=== PATIENT | male | born 1955 | race Caucasian/White ===

== ENCOUNTER 2016-11-22 19:35 | Inpatient (IN) | payer OTHER ==
[~2016-11-22] VITALS: Ht 182.9 cm; Wt 100.7 kg
--- NOTE | ~2016-11-22 | HC ---
[facility] [place] [address] CONSULTATION Name: RAHEL CAMPA Room #: 419-P [facility] IN M.R.#: [id number] Admission: 11/22/16 Attend Phys: Melany Palencia Discharge: 11/25/16 Date of : 57 Report #: [id number] THIS REPORT FOR: //name// CC: Jono Palencia DATE OF SERVICE: 11/24/2016 CHIEF COMPLAINT: Lower abdominal pain. HISTORY OF PRESENT ILLNESS: The patient is a 61-year-old male patient with history of rectal cancer and previous DVT. He had previously undergone treatment for stage III T3N1 rectal cancer, who had previously undergone laparoscopic assisted Splenic flexure mobilization with proctectomy and stapled coloanal anastomosis and diverting loop ileostomy in December 2007. He subsequently underwent loop ileostomy reversal with incisional hernia repair by Dr. Kern as well in 07/2008. More recently, he was admitted from [facility] with complaints of right flank pain radiating into the right groin. CT scan at the outside facility had shown right hydronephrosis and possible distal ureteral stricture. There was also a small calcification near the transition point. The patient was evaluated by urology service with Dr. Morales and the patient underwent a CT scan with urogram. This demonstrated that the hydronephrosis appeared chronic compared to CT scan from 2013, hydroureter was noted 5 cm proximal to the bladder, which also appeared chronic, no calculi were noted. No acute intervention was warranted by Urology at this time. The patient was also noted to have a chronic incarcerated ventral incisional hernia in the right lower abdominal wall from the prior ileostomy site. There were no loops of bowel contained within the hernia, no bowel obstruction. The patient has been on Plavix for previous CVA and that had been held for 3 days prior to this visit. The patient complained of right flank pain radiating into the right scrotum. Ultrasound of the scrotum was also obtained, which was unremarkable. There was also some discomfort that he described at the site of his hernia, which was uncomfortable, but not exquisitely tender. He did wish for repair of this incisional hernia and the patient knew that this had been in place for quite some time. PAST MEDICAL HISTORY: Positive for rectal cancer status post resection and subsequent adjuvant therapy including radiation therapy. He followed with Dr. Wen with Oncology. Past medical history is also positive for hypertension, previous sinus surgery, anxiety, degenerative joint disease, depression, hyperlipidemia, chronic pain, gastroesophageal reflux disease, bilateral carpal tunnel. PAST SURGICAL HISTORY: As described above. Previous chemoradiation for rectal cancer with resection by Dr. Kern with coloanal anastomosis with loop ileostomy and subsequent reversal as well as incisional hernia repair at that ileostomy site, which is now recurrent. Also, positive for bilateral carpal [address] [address] CONSULTATION Name: RAHEL CAMPA Room #: 419-P [facility] IN M.R.#: [id number] Admission: 11/22/16 Attend Phys: Melany Palencia Discharge: 11/25/16 Date of : 57 Report #: [id number] tunnel release, multiple functional endoscopic sinus surgeries. ALLERGIES: CODEINE and MORPHINE. SOCIAL HISTORY: Negative for tobacco, ETOH or drug use. MEDICATIONS: Elavil, zolpidem, gabapentin, simvastatin, Celebrex, Plavix 75 mg daily, Cymbalta, Louin, Requip, Zanaflex, Benadryl, Tylenol, chlorpheniramine maleate, folate, ranitidine, amlodipine, Meloxicam, fenofibrate. REVIEW OF SYSTEMS: A 10-point review of systems negative except for that mentioned in the HPI. PHYSICAL EXAMINATION: GENERAL: The patient is awake, alert and oriented. He is in no acute distress, he is afebrile and normotensive. HEENT: Head is atraumatic and normocephalic. LUNGS: Clear to auscultation without respiratory distress. HEART: Regular, without murmur. ABDOMEN: Soft, nondistended. He is tender in a right mid abdomen to lower abdomen. There is a palpable hernia, unable to palpate the edges of the hernia defect, this is incarcerated, does not appear strangulated, no overlying skin changes, no rebound or guarding. Scrotal contents unremarkable on examination. No palpable inguinal hernia. NEUROLOGIC: Cranial nerves are intact and symmetric. SKIN: Clean, dry and intact without obvious lesions or breakdown. LABORATORY DATA: Reviewed. White count of 9.9, hemoglobin of 13.9, platelets of 260. Urinalysis showed 1+ protein, 1+ blood, 0-3 hyaline casts. IMPRESSION: A 61-year-old male patient with recurrent incarcerated ventral incisional hernia from prior ileostomy reversal site, previous history of rectal cancer status post resection with coloanal anastomosis as well as chemoradiation therapy. No sign of acute bowel obstruction or strangulated hernia, although this does appear incarcerated on CT and examination and is uncomfortable for the patient. No immediate surgical intervention is necessary. However, this certainly could be repaired on an outpatient basis. Detailed discussion of the risks and benefits of surgical intervention for repair of this hernia held with the patient and his at the bedside. Risks included bleeding, pain, infection, recurrence, damage to surrounding structures including bowel, colon, bladder, ureters, kidneys and other unforeseen circumstances were all discussed. It was discussed that should any of these unforeseen events occur this may require further treatment and further hospitalization and all questions were answered to their satisfaction. RECOMMENDATIONS: 1. The patient does wish to proceed with laparoscopic ventral incisional hernia repair in the near future. 2. We would resume patient's Plavix at this time and will coordinate with the patient as an outpatient to hold his Plavix 7 days preoperatively. 3. Consultation very [address] [address] CONSULTATION Name: RAHEL CAMPA Room #: 419-P [facility] IN M.R.#: [id number] Admission: 11/22/16 Attend Phys: Melany Palencia Discharge: 11/25/16 Date of : 57 Report #: [id number] much appreciated. We will continue to follow the patient while he is an inpatient and make further recommendations based upon clinical status, radiographic and laboratory findings. <ELECTRONICALLY SIGNED> By: Eliezer Johnson MD 11/27/16 0647 1400 0256 Eliezer Johnson MD /nt
[~2016-11-22 19:35] MED LIST: AMBIEN 5 MG TABL5 M1 PO; AMITRIPTYLINE H25 M2 PO; ASPIRIN325 PO; BUSPIRONE HCL10 MG PO; BUSPIRONE HCL15 MG PO; FISH OIL 1,001000 M2 PO; FLEXERIL PO; FLONASE 0.05%50 MCG NASAL; HYDROCODON-ACE1 EAC5; LORAZEPAM 1 MG T1 M1 PO; MILK OF MA2400 MG/10 PO; MIRALAX17 GM PO; MOBIC7.5 MG PO; NEURONTIN 300300 M1 PO; NORVASC 5 MG TAB5 MG PO; PERCOCET PO; RAPAFLO8 MG PO; SIMVASTATIN40 MG PO; TRICOR145 MG PO; VALIUM5 MG PO; VENLAFAXINE HC150 M1 PO; ZANTAC 150MG T150 MG PO
[2016-11-22 21:24] VITALS: BP 138/81
[2016-11-22 21:48] LABS: HEMOGLOBIN 13.9 gm/dL (14.0-18.0); MCH 31.7 pg (26.0-34.0); MCHC 34.7 g/dL (28.0-37.0); MCV 91.3 fL (80.0-100.0); RBC 4.38 mil/uL (4.50-6.00); RDW 12.6 % (10.5-14.5); WBC 9.9 thou/uL (4.0-11.0)
[2016-11-22 22:00] LABS: CALCIUM 8.4 mg/dL (8.5-10.1); CREATININE 1.3 mg/dL (0.7-1.3)
[2016-11-22 22:05] LABS: ALBUMIN 3.9 g/dL (3.4-5.0); TOTAL BILIRUBIN 0.5 mg/dL (<0.1-1.0); TOTAL PROTEIN 7.7 g/dL (6.4-8.2)
[2016-11-22] MEDS ORDERED: CELEBREX 200 M200 M1 PO (22:33)
[2016-11-22] MEDS ORDERED: CYMBALTA60 MG PO (22:33)
[2016-11-22] MEDS ORDERED: PLAVIX 75 MG TA75 M1 PO (22:33)
[2016-11-22] MEDS ORDERED: ZANAFLEX4 MG PO (22:34)
[2016-11-22] MEDS ORDERED: HYDROCODONE-APA1 TA1 PO (22:34)
[2016-11-22] MEDS ORDERED: REQUIP0.5 MG PO (22:34)
[2016-11-22] MEDS ORDERED: APAP500 PO (22:35)
[2016-11-22] MEDS ORDERED: BENADRYL25 MG PO (22:35)
[2016-11-22] MEDS ORDERED: FOLIC ACID 40400 MCG PO (22:36)
[2016-11-22] MEDS ORDERED: CHLORPHENIRAMINE4 M1 PO (22:36)
[2016-11-22 23:33] VITALS: BP 131/77
[2016-11-23 00:07] LABS: URINE BILIRUBIN NEGATIVE (Negative); URINE BLOOD 1+ (Negative); URINE COLOR YELLOW; URINE GLUCOSE-RANDOM* 1+ (Negative); URINE KETONES NEGATIVE (Negative); URINE LEUKOCYTES-REFLEX NEGATIVE (Negative); URINE PROTEIN (DIPSTICK) 1+ (Negative); URINE SPECIFIC GRAVITY 1.025 (1.003-1.035)
[2016-11-23 00:23] LABS: CASTS None Seen /LPF (None Seen); SQUAMOUS None Seen /LPF (0-3); URINE WBC-REFLEX None Seen /HPF (0-5)
[2016-11-23 00:24] LABS: CRYSTALS None Seen /LPF (None Seen); HYALINE CASTS 0-3 Few /LPF (None Seen); URINE RBC None Seen /HPF (0-2)
[2016-11-23 03:21] VITALS: BP 151/84
[2016-11-23 07:09] VITALS: BP 149/82
[2016-11-23 15:12] VITALS: BP 139/91
[2016-11-23 19:12] LABS: GLYCOHEMOGLOBIN (HGB A1C) 7.5 % (4.8-5.6)
[2016-11-23 20:00] VITALS: BP 142/88
[2016-11-24 05:30] VITALS: BP 121/77
[2016-11-24 07:56] VITALS: BP 145/82
[2016-11-24 11:30] LABS: HEMATOCRIT 36.5 % (42.0-52.0); HEMOGLOBIN 12.6 gm/dL (14.0-18.0); MCH 31.5 pg (26.0-34.0); MCHC 34.4 g/dL (28.0-37.0); MCV 91.5 fL (80.0-100.0); RBC 3.99 mil/uL (4.50-6.00); RDW 12.9 % (10.5-14.5); WBC 6.8 thou/uL (4.0-11.0)
[2016-11-24 11:38] LABS: POTASSIUM 4.3 mmol/L (3.5-5.1)
[2016-11-24 11:51] VITALS: BP 129/80
[2016-11-24] MEDS ORDERED: GLYBURIDE 5 MG T5 M1 PO (12:02)
[2016-11-24 15:14] VITALS: BP 123/58
[2016-11-24 20:00] VITALS: BP 149/73
[2016-11-25 04:09] VITALS: BP 128/63
[2016-11-25 07:08] VITALS: BP 119/69
[2016-11-25 10:30] VITALS: BP 119/69
[2016-12-01] MEDS ORDERED: NORVASC10 MG PO (16:07)
[2016-12-01] MEDS ORDERED: FENOFIBRATE160 MG PO (16:09)
== END 2016-11-25 11:33 | disposition home or self-care (01) | DRG 694 ==
LOC: 4E 19:35
PROVIDERS: Nurse Practitioner; Physician Assistant
PROC: BV44ZZZ Ultrasonography of Scrotum (ICD-10-PCS; principal; 2016-11-24)
DX: N13.30 Unspecified hydronephrosis (principal); K43.0 Incisional hernia with obstruction, without gangrene; N17.0 Acute kidney failure with tubular necrosis; I10 Essential (primary) hypertension; M19.90 Unspecified osteoarthritis, unspecified site; F32.9 Major depressive disorder, single episode, unspecified; E78.5 Hyperlipidemia, unspecified; K21.9 Gastro-esophageal reflux disease without esophagitis; M54.5 Low back pain; G89.4 Chronic pain syndrome; F41.1 Generalized anxiety disorder; E66.9 Obesity, unspecified; Z68.30 Body mass index [BMI] 30.0-30.9, adult; Z79.899 Other long term (current) drug therapy; Z79.82 Long term (current) use of aspirin; Z85.048 Personal history of other malignant neoplasm of rectum, rectosigmoid junction, and anus; Z86.718 Personal history of other venous thrombosis and embolism; Z93.2 Ileostomy status; Z88.6 Allergy status to analgesic agent; Z87.442 Personal history of urinary calculi; Z86.73 Personal history of transient ischemic attack (TIA), and cerebral infarction without residual deficits
CPT/HCPCS: 10183

== ENCOUNTER 2016-12-07 05:25 | Day surgery (SDC) | payer OTHER ==
[~2016-12-07] VITALS: Ht 182.9 cm; Wt 99.8 kg
--- NOTE | ~2016-12-07 | S ---
[facility] [place] [address] SURGICAL PATH RPT PROCEDURE Name: CHIDI CAMPA Room #: DEP [facility] M..#: [id number] Admission: 12/07/16 Date of : 57 Discharge: 12/07/16 Report #: [id number] Path Case #: [id number] PATHOLOGY REPORT COLLECTION DATE: 12/07/2016 RECEIVED DATE: 12/07/2016 SUBMITTING PHYS: Dr. Eliezer Johnson OTHER PHYS: Dr. Jono Reese SPECIMEN(S) RECEIVED: A.Recurrent incarcerated ventral hernia contents * * * * * * * * * * * * FINAL DIAGNOSIS: Recurrent incarcerated ventral hernia, repair: - Fibroadipose and fibrovascular connective tissue with reactive changes, compatible with hernia sac. (IUV:mgr; d/t: 12/09/16) PATHOLOGIST: La Nena Moon M.D. REPORT ELECTRONICALLY SIGNED BY: La Nena Moon M.D. DATE/TIME: 12/09/2016 16:39 * * * * * * * * * * * * GROSS PATHOLOGY: The specimen is received in formalin labeled "Chidi Campa, recurrent incarcerated ventral hernia contents". Received is a moderate amount of yellow-thompson omentum admixed with yellow white-thompson lobulated tissue measuring 8.3 x 6.2 x 1.9 cm in aggregate dimensions. The specimen is submitted representatively in cassette A1. (CAA; 12/08/2016) CLINICAL HISTORY: Recurrent incarcerated ventral incisional hernia, primary umbilical hernia INITIAL CPT CODE(S): A; 24085 Professional services performed by [facility] at [facility] [address], [place] [address] Technical services performed by [facility] at [address] [place] [id number]. [facility] [address] [place] [address] SURGICAL PATH RPT PROCEDURE Name: CHIDI CAMPA Room #: DEP [facility] Forest#: [id number] Admission: 12/07/16 Date of : 57 Discharge: 12/07/16 Report #: [id number] Path Case #: [id number] [facility] [address] [address] PHONE: [phone] DIRECTOR: Bear Rangel M.D. * * * END OF REPORT * * *
--- NOTE | ~2016-12-07 | O ---
[facility] [place] [address] OPERATIVE REPORT Name: RAHEL CAMPA Room #: [facility]..#: [id number] Admission: 12/07/16 Attend Phys: Eliezer Johnson MD Discharge: 12/07/16 Date of : 57 Report #: [id number] THIS REPORT FOR: //name// CC: Jono Johnson DATE OF SERVICE: 12/07/2016 PREOPERATIVE DIAGNOSES: 1. Incarcerated recurrent ventral incisional hernia at prior ileostomy site. 2. Primary umbilical hernia, symptomatic. POSTOPERATIVE DIAGNOSES: 1. Incarcerated recurrent ventral incisional hernia at prior ileostomy site. 2. Primary umbilical hernia, symptomatic. PROCEDURE: 1. Laparoscopic repair of recurrent incarcerated ventral incisional hernia with mesh. 2. Primary suture repair of umbilical hernia. SURGEON: Eliezer Johnson M.D. COMMERCIAL DRIVER: Sridhar Reese M.D. and Beulah Preston, Medical Student. ESTIMATED BLOOD LOSS: 15 mL. IV FLUIDS: See anesthesia record. FINDINGS: 11.[address] mesh with absorbable tacking system utilized for incarcerated right abdominal wall ventral incisional hernia repair. SPECIMENS TO PATHOLOGY: Incarcerated ventral incisional hernia contents consistent with incarcerated omentum and preperitoneal fat. INDICATION FOR PROCEDURE: The patient is a very pleasant 61-year-old male patient with history of rectal cancer treated approximately 9 years ago. This had involved resection with primary anastomosis and a diverting loop ileostomy. The ileostomy was subsequently taken down and the patient developed a hernia, which was repaired. The hernia recurred and has been quite symptomatic in the area of the right mid to lower abdomen. This has been imaged and contains incarcerated omentum. This was symptomatic to the patient. He also had umbilical small hernia which was symptomatic, which the patient desired to have repaired. Detailed discussion of the risks and benefits of surgical intervention was held with the patient and all questions were answered to his satisfaction. Risks including bleeding, pain, infection, recurrence, damage to surrounding structures such as bowel, bladder, kidneys, ureter, colon, subsequent infection or abscess formation were all discussed in detail. All questions were answered to the patient's satisfaction, written informed consent was obtained. [address] [address] OPERATIVE REPORT Name: RAHEL CAMPA [id number] Admission: 12/07/16 Attend Phys: Eliezer Johnson MD Discharge: 12/07/16 Date of : 57 Report #: [id number] DESCRIPTION OF PROCEDURE: The patient was brought to the operating room and placed in a supine position. Timeout was taken to verify the patient's identity and to plan the procedure. SCDs were in place on the lower extremities bilaterally. Preoperative antibiotics were administered. Anesthesia was induced. The patient was intubated. Abdomen was sterilely prepped and draped in standard fashion. Left upper quadrant 5-mm incision was made after local anesthetic had been infiltrated. A 5-mm 0-degree laparoscope was inserted with a 5-mm trocar using direct optical access technique. Pneumoperitoneum was created and inspection of the viscera showed that no injury had occurred upon entry. A 5-mm left lateral port and a 5 mm left lower quadrant port were placed under direct visualization. The left lateral port was then upsized to a 12-mm port. The anterior abdominal wall was visualized and omentum was noted to be incarcerated in a hernia in the right mid abdomen at the prior site of loop ileostomy. The omentum was reduced using blunt dissection and Sonicision energy device. A fair amount of the incarcerated fat was transected and removed as incarcerated ventral incisional hernia contents consistent with incarcerated omentum and preperitoneal fat. The omentum that had been reduced was examined and noted to be hemostatic. The peritoneum surrounding the hernia defect was scored and stripped away from the fascia. The site of the umbilical hernia was examined and this was noted to be a quite small 0.5 cm umbilical hernia defect. The peritoneum was stripped away from this site and this was palpated externally to allow visualization. This was closed using #1 PDS [id number]-ik-[id number] suture passed through the umbilicus using a suture passer under direct visualization. This was tied down and secured. Next, a Ventralight ST round 11.4 cm mesh was selected. This was rolled into a cylinder and passed through the 12 mm port site. This was unfurled and suspended up against the anterior abdominal wall to cover the defect. This was noted to cover the defect nicely with at least 4 cm overlap in all directions surrounding the hernia defect. This was then secured to the anterior abdominal wall using a SecureStrap absorbable tacking system. Prior to tacking this in place, the intra-abdominal pressure was decreased to a level of 10 cm of water. Also, a 5-mm right lateral port was placed under direct vision to aid with the geometry of tacking the 11.4 cm mesh circumferentially with good coverage. Intraoperative photographs were taken at various points during the operation including initially after visualization of the defect and reduction of the hernia contents as well as after placement of the hernia mesh. Echo positioning device was removed from the 12-mm port site, it was noted to be intact. Inspection of the viscera showed that no further active bleeding was noted. The 12-mm port was then removed and the fascia was closed at this level using [id number] 0 PDS suture under direct vision. Pneumoperitoneum was then carefully relieved and local anesthetic was further infiltrated into each of the 4 port sites as well as at the umbilicus. The skin was closed at each of the 4 port sites using 4-0 Monocryl subcuticular stitches. Dermabond was applied superficially to each of these 4 sites. Dermabond was also applied at the suture passer site at the umbilicus as well as the suture passer site that [address] [address] OPERATIVE REPORT Name: LOKESHRAHEL CARMEN Room #: [facility].#: [id number] Admission: 12/07/16 Attend Phys: Eliezer Johnson MD Discharge: 12/07/16 Date of : 57 Report #: [id number] had been used for the echo positioning system at the right mid abdomen hernia defect site. At this point, the case was ended, all instrumentation had been extracted and accounted for. All counts were correct per nursing report. External elastic binder was placed and the patient was extubated and taken to the postoperative care unit in stable condition. <ELECTRONICALLY SIGNED> By: Eliezer Johnson MD 12/08/16 1650 1508 1534 Eliezer Johnson MD /nt
--- NOTE | ~2016-12-07 | EKG ---
[address] [address] ELECTROCARDIOGRAM REPORT Name: RAHEL CAMPA Room #: 150-2 [facility].#: [id number] Admission: 12/07/16 Attend Phys: Eliezer Johnson MD Discharge: Date of : 57 Report #: [id number] THIS REPORT FOR: //name// [facility] Test Date: 2016-12-07 Test Time: 09:11:15 Pat Name: RAHEL CAMPA Department: Room: 150 2 Gender: M Application Development Specialist: TEREZA : 1955 Requested By: Eliezer Johnson Order Number: [id number] MD: Dhruv Ivy Measurements Intervals [place] Rate: 87 P: -31 CA: 184 QRS: -9 QRSD: 95 T: 39 QT: 363 QTc: 437 Interpretive Statements Sinus rhythm Compared to ECG 01/20/2014 19:22:40 No significant changes Electronically Signed On 12-07-2016 15:07:44 CDT by Dhruv Ivy [email or web address] <ELECTRONICALLY SIGNED> By: Dhruv Ivy MD 12/07/16 1507 0911 0 Dhruv Ivy MD /JUAN CARLOS
[~2016-12-07 05:25] MED LIST changes: +APAP500 PO; +BENADRYL25 MG PO; +CELEBREX 200 M200 M1 PO; +CHLORPHENIRAMINE4 M1 PO; +CYMBALTA60 MG PO; +FENOFIBRATE160 MG PO; +FOLIC ACID 40400 MCG PO; +FOLIC ACID PO; +GABAPENTIN800 M1 PO; +GLYBURIDE 5 MG T5 M1 PO; +HYDROCODONE-APA1 TA1 PO; +NORVASC10 MG PO; +PLAVIX 75 MG TA75 M1 PO; +REQUIP0.5 MG PO; +ZANAFLEX4 MG PO; +ZOLPIDEM PO; +ZOLPIDEM TARTRA10 MG PO
[2016-12-07 09:35] LABS: HEMATOCRIT 40.5 % (42.0-52.0); HEMOGLOBIN 13.9 gm/dL (14.0-18.0)
[2016-12-07 10:08] VITALS: BP 137/90
[2016-12-07] MEDS ORDERED: COLACE100 MG PO (12:54)
[2016-12-07] MEDS ORDERED: PERCOCET PO (12:54)
[2016-12-07 13:39] VITALS: BP 137/90
== END 2016-12-07 14:50 | disposition home or self-care (01) ==
LOC: OR 05:25 → TBA 05:25 → OR 13:44
PROVIDERS: Otolaryngology
DX: K43.0 Incisional hernia with obstruction, without gangrene (principal); K42.9 Umbilical hernia without obstruction or gangrene; Z93.2 Ileostomy status; R06.02 Shortness of breath; F32.9 Major depressive disorder, single episode, unspecified; F41.9 Anxiety disorder, unspecified; E78.5 Hyperlipidemia, unspecified; Z85.038 Personal history of other malignant neoplasm of large intestine; K21.9 Gastro-esophageal reflux disease without esophagitis; I10 Essential (primary) hypertension; M54.9 Dorsalgia, unspecified; Z98.890 Other specified postprocedural states
CPT/HCPCS: 50010; 50101; 50249; 50386; 50555; 50558; 50944; 50962; 50980; 50984; 52265; 54022; 54118; 56525; 56526; 57092; 62110; 62900; 70005

== ENCOUNTER 2017-01-02 16:57 | Emergency (ER) | payer OTHER ==
[~2017-01-02] VITALS: Ht 185.4 cm; Wt 117.9 kg
[~2017-01-02 16:57] MED LIST changes: +COLACE100 MG PO
[2017-01-02 17:25] LABS: URINE BILIRUBIN NEGATIVE (Negative); URINE BLOOD NEGATIVE (Negative); URINE COLOR YELLOW; URINE GLUCOSE-RANDOM* 3+ (Negative); URINE KETONES NEGATIVE (Negative); URINE LEUKOCYTES-REFLEX NEGATIVE (Negative); URINE PROTEIN (DIPSTICK) NEGATIVE (Negative); URINE UROBILINOGEN 0.2 E.U./dl (0.2-1.0)
[2017-01-02 17:40] LABS: BASOPHILS 0.5 % (0.0-2.0); EOSINOPHILS 1.3 % (0.0-3.0); HEMATOCRIT 38.3 % (42.0-52.0); HEMOGLOBIN 13.1 gm/dL (14.0-18.0); LYMPHOCYTES 11.8 % (24.0-44.0); MANUAL DIFF NO; MCH 31.5 pg (26.0-34.0); MCHC 34.3 g/dL (28.0-37.0); MONOCYTES 6.3 % (1.0-8.0); PLATELET COUNT 280 thou/uL (150-400); POLYS 80.1 % (36.0-66.0); RBC 4.17 mil/uL (4.50-6.00); RDW 12.3 % (10.5-14.5); WBC 6.3 thou/uL (4.0-11.0)
[2017-01-02 17:56] LABS: CALCIUM 9.8 mg/dL (8.5-10.1); CREATININE 1.2 mg/dL (0.7-1.3); POTASSIUM 4.9 mmol/L (3.5-5.1)
[2017-01-02 18:00] LABS: TOTAL BILIRUBIN 0.3 mg/dL (<0.1-1.0); TOTAL PROTEIN 7.9 g/dL (6.4-8.2)
[2017-01-02] MEDS ORDERED: LEVSIN0.125 MG PO (19:06)
[2017-01-02] MEDS ORDERED: SENOKOT-S1 TA1 PO (19:07)
[2017-01-02] MEDS ORDERED: NORCO 5-325 TA1 EACH PO (19:39)
== END 2017-01-02 20:20 | disposition home or self-care (01) ==
LOC: ER 16:57
PROVIDERS: Physician Assistant
DX: E11.9 Type 2 diabetes mellitus without complications (principal); N13.30 Unspecified hydronephrosis; Q62.10 Congenital occlusion of ureter, unspecified; F41.9 Anxiety disorder, unspecified; F32.9 Major depressive disorder, single episode, unspecified; K21.9 Gastro-esophageal reflux disease without esophagitis; I10 Essential (primary) hypertension; Z86.73 Personal history of transient ischemic attack (TIA), and cerebral infarction without residual deficits; Z87.442 Personal history of urinary calculi; Z98.890 Other specified postprocedural states; Z88.5 Allergy status to narcotic agent; Z88.8 Allergy status to other drugs, medicaments and biological substances

== ENCOUNTER 2019-05-29 23:10 | Emergency (ER) | payer OTHER ==
[~2019-05-29] VITALS: Ht 182.9 cm; Wt 95.3 kg
[~2019-05-29 23:10] MED LIST changes: +LEVSIN0.125 MG PO; +NORCO 5-325 TA1 EACH PO; +SENOKOT-S1 TA1 PO
[2019-05-29 23:42] LABS: URINE BILIRUBIN NEGATIVE (Negative); URINE BLOOD 1+ (Negative); URINE CLARITY CLOUDY; URINE COLOR YELLOW; URINE GLUCOSE-RANDOM* 3+ (Negative); URINE KETONES NEGATIVE (Negative); URINE LEUKOCYTES-REFLEX 1+ (Negative); URINE NITRITE-REFLEX NEGATIVE (Negative); URINE PROTEIN (DIPSTICK) 1+ (Negative); URINE UROBILINOGEN 0.2 E.U./dl (0.2-1.0)
[2019-05-29 23:44] LABS: URINE REDUCING SUBSTANCE >2 %
[2019-05-30 00:01] LABS: ABSOLUTE NEUTROPHILS 6.3 thou/uL (1.4-8.2); BASOPHILS 0.3 % (0.0-2.0); EOSINOPHILS 1.1 % (0.0-3.0); HEMATOCRIT 35.6 % (42.0-52.0); HEMOGLOBIN 11.6 gm/dL (14.0-18.0); LYMPHOCYTES 5.2 % (24.0-44.0); MCH 29.8 pg (26.0-34.0); MCHC 32.7 g/dL (28.0-37.0); MCV 91.3 fL (80.0-100.0); MONOCYTES 2.1 % (1.0-8.0); PLATELET COUNT 372 thou/uL (150-400); POLYS 91.3 % (36.0-66.0); RBC 3.91 mil/uL (4.50-6.00); RDW 13.4 % (10.5-14.5); WBC 6.9 thou/uL (4.0-11.0)
[2019-05-30 00:08] LABS: BACTERIA-REFLEX 1-9 Few /HPF (None Seen); CASTS None Seen /LPF (None Seen); MUCUS 0-3 Light strn/LPF (None Seen); SQUAMOUS 0-3 Few /LPF (0-3); URINE RBC 3-10 Few /HPF (0-2); URINE WBC-REFLEX >25 Many /HPF (0-5); WBC CLUMPS Packed (None Seen)
[2019-05-30 00:09] LABS: CRYSTALS None Seen /LPF (None Seen)
[2019-05-30 00:14] LABS: ALBUMIN 3.7 g/dL (3.4-5.0); ANION GAP 13 mmol/L (7-16); BUN 26 mg/dL (7-18); CALCIUM 9.7 mg/dL (8.5-10.1); CHLORIDE 92 mmol/L (98-107); CO2 23 mmol/L (21-32); CREATININE 1.9 mg/dL (0.7-1.3); LIPASE 546 U/L (73-393); POTASSIUM 5.1 mmol/L (3.5-5.1); SGOT 21 U/L (15-37); SGPT 28 U/L (30-65); SODIUM 128 mmol/L (136-145); TOTAL BILIRUBIN 0.5 mg/dL (<0.1-1.0); TOTAL PROTEIN 8.8 g/dL (6.4-8.2); TROPONIN-I <0.06 ng/mL (<0.06)
[2019-05-30 00:19] LABS: GLUCOSE 542 mg/dL (74-106)
[2019-05-30 04:11] VITALS: BP 109/65
--- NOTE | 2019-05-30 17:03 | EKG ---
[address] [place] [address] ELECTROCARDIOGRAM REPORT Name: RAHEL CAMPA [id number] Admission: 05/29/19 Attend Phys: Discharge: 05/30/19 Date of : 57 Report #: [id number] THIS REPORT FOR: //name// [facility] ED Test Date: 2019-05-29 Test Time: 23:51:48 Pat Name: RAHEL CAMPA Department: Room: Gender: Preventive Medicine Physician: BRITTANY : 1955 Requested By: Tim Leos Order Number: [id number] MD: Octavio Noble Measurements Intervals [place] Rate: 119 P: 44 MI: 166 QRS: -32 QRSD: 111 T: 93 QT: 317 QTc: 447 Interpretive Statements Sinus tachycardia Nonspecific intraventricular conduction delay Compared to ECG 12/07/2016 09:11:15 Heart rate has increased Nonspecific intraventricular conduction delay is present Electronically Signed On 05-30-2019 17:03:00 FIRE OBSERVER by Octavio Noble [email or web address] <ELECTRONICALLY SIGNED> By: Octavio Noble MD, [facility] 05/30/19 1703 2351 50 Octavio Noble MD, FACC /EPI
== END 2019-05-30 04:15 | disposition short-term general hospital (02) ==
LOC: ER 23:10
PROVIDERS: Emergency Medicine
DX: A41.9 Sepsis, unspecified organism (principal); N17.9 Acute kidney failure, unspecified; N12 Tubulo-interstitial nephritis, not specified as acute or chronic; N39.0 Urinary tract infection, site not specified; K85.90 Acute pancreatitis without necrosis or infection, unspecified; N13.1 Hydronephrosis with ureteral stricture, not elsewhere classified; E11.9 Type 2 diabetes mellitus without complications; R11.2 Nausea with vomiting, unspecified; Z88.5 Allergy status to narcotic agent